=== PATIENT | male | born 1990 | race Caucasian/White ===

== ENCOUNTER 2016-12-12 13:27 | Emergency (ER) | payer BC ==
--- NOTE | 2016-12-12 16:04 | RAD ---
INDICATION: Fall. Left elbow injury COMPARISON: None TECHNIQUE: AP, lateral, and oblique views were obtained. FINDINGS: There is no acute fracture. The elbow articulates normally. There is no joint effusion. There is a laceration about the proximal ulna and distal forearm along the dorsal aspect. IMPRESSION: NO ACUTE FRACTURE. LACERATION.
[2016-12-12] MEDS ORDERED: Ibuprofen TAB* 800 MG PO ONE (18:36)
--- NOTE | 2016-12-12 18:41 | ED ---
Upper Extremity Pain - HPI Summary HPI Summary: Pt here w/ Lt elbow injury s/p fall in [place] earlier today - cut elbow on a dirty rock. Has a laceration over Lt elbow and pain w/ movement but he can move it. Denies numbness, tingling, weakness. Imms are UTD. No other injuries to report. - History of Current Complaint Chief Complaint: EDLacSutureRecheck Stated Complaint: LT ELBOW INJURY Time Seen by Provider: 12/12/16 17:36 Hx Obtained From: Patient - Allergies/Home Medications Allergies/Adverse Reactions: Allergies Allergy/AdvReac Type Severity Reaction Status Date / Time No Known Allergies Allergy Verified 12/12/16 15:40 PMH/Surg Hx/FS Hx/Imm Hx Previously Healthy: Yes Endocrine/Hematology History: Denies: Hx Anticoagulant Therapy, Hx Blood Disorders, Autoimmune Disease Infectious Disease History: No Infectious Disease History: Denies: Hx of Known/Suspected MRSA, Traveled Outside the [place] in Last 30 Days - Social History Occupation: Student Lives: With Family Alcohol Use: None Hx Substance Use: No Substance Use Type: Reports: None Hx Tobacco Use: Yes Smoking Status (MU): Current Every Day Smoker Review of Systems Positive: no symptoms reported Musculoskeletal: Other - see HPI Skin: Other - see HPI Neurological: Negative Psychological: Normal All Other Systems Reviewed And Are Negative: Yes Physical Exam Triage Information Reviewed: Yes Vital Signs On Initial Exam: Initial Vitals Temp Pulse Resp BP Pulse Ox 97.9 F 95 18 123/66 97 12/12/16 13:35 12/12/16 13:35 12/12/16 13:35 12/12/16 13:35 12/12/16 13:35 Vital Signs Reviewed: Yes Appearance: Positive: Well-Appearing, Well-Nourished, Pain Distress - mild at rest Skin: Positive: Warm - punture/lac wound over Lt olecranon p - bubbling d/c - no active bleeding Head/Face: Positive: Normal Head/Face Inspection Eyes: Positive: EOMI ENT: Positive: Hearing grossly normal Respiratory/Lung Sounds: Positive: Breath Sounds Present Cardiovascular: Positive: Normal, Pulses are Symmetrical in both Upper and Lower Extremities Musculoskeletal: Positive: Normal, Strength/ROM Intact Neurological: Positive: Normal, Sensory/Motor Intact, Alert, Oriented to Person Place, Time, CN Intact II-III Psychiatric: Positive: Normal Procedures - Procedure Summary Procedure Summary: Irregular and dirty Lt elbow puncture/lac after [place] - 5mm in size. Cleaned with iodine and injected with marcaine 0.5% then flushed with 500cc sterile water and iodine solution. Packed w/ sterile gauze and bandage applied. Pt tolerated well. Diagnostics - Vital Signs Vital Signs Temp Pulse Resp BP Pulse Ox 12/12/16 15:34 97.9 F 95 18 123/66 97 12/12/16 13:35 97.9 F 95 18 123/66 97 - Laboratory Lab Statement: Any lab studies that have been ordered have been reviewed, and results considered in the medical decision making process. Course/Dx - Diagnoses Provider Diagnoses: Laceration of elbow, left Discharge - Discharge Plan Condition: Stable Disposition: HOME Prescriptions: Clindamycin CAP* [Cleocin 150 MG CAP*] 300 mg PO Q6H #60 cap Patient Education Materials: Laceration (ED), Laceration Without Closure (ED) Referrals: Non Staff,Doctor [Primary Care Provider] - Additional Instructions: Keep dressing in place until tomorrow when packing may be changed by a medical professional. Rest, ice, elevate in the meantime You may take ibuprofen alternating with acetaminophen for pain Complete antibiotics as directed Follow-up with medical provider tomorrow for packing change. You may return here or go to urgent care. *If you develop fever, chills, nausea, vomiting, swelling, streaking, inability to move elbow, return to ED
[2016-12-12] MEDS ORDERED: Clindamycin CAP* 150 MG PO ONE (18:42)
[2016-12-12 19:43] VITALS: BP 142/62
== END 2016-12-12 19:42 | disposition home or self-care (01) ==
LOC: ED 13:27
DX: S51.012A Laceration without foreign body of left elbow, initial encounter (principal); W19.XXXA Unspecified fall, initial encounter; Y93.9 Activity, unspecified; Y92.9 Unspecified place or not applicable; Y99.9 Unspecified external cause status; F17.210 Nicotine dependence, cigarettes, uncomplicated
CPT/HCPCS: 99282; A9270-GY

== ENCOUNTER 2016-12-13 11:20 | Emergency (ER) | payer BC ==
[2016-12-13] MEDS ORDERED: Vancomycin(*) 1,000 MG in NS 0.9% 250 ML* 250 ML IVPB ONE (12:48)
[2016-12-13 14:04] VITALS: BP 128/74
--- NOTE | 2016-12-13 14:06 | ED ---
Skin Complaint - HPI Summary HPI Summary: Patient presents for wound check. He was seen last night for a puncture wound to the left elbow. The area was cleaned and packed. He was to return today for a wound check. Today, the area seems to be draining yellow serous and sanguineous fluid from the packing and puncture with surrounding cellulitic erythema which patient feels may have slightly became worse overnight. He was placed on Clindamycin. No culture was obtained yesterday, so agree to have one today. Denies fever, numbness, tingling. The area has warmth with no streaking from the wound. He is able to have full ROM of the elbow but with moderate amount of pain. He is otherwise healthy and takes no medications. He agrees to follow up with his PCP or his father his is an MD tomorrow to continue a wound check. - History of Current Complaint Chief Complaint: EDLacSutureRecheck Time Seen by Provider: 12/13/16 11:35 Stated Complaint: LT ARM DRESSING CHANGE Hx Obtained From: Patient Onset/Duration: Started Days Ago Skin Exposure Onset/Duration: Days Ago Timing: Constant Onset Severity: Mild Current Severity: Mild Pain Intensity: 4 Pain Scale Used: 0-10 Numeric Skin Location: Discrete - left elbow Character: Swelling, Pain, Redness, Raised Aggravating Symptom(s): Nothing Alleviating Symptom(s): Nothing Associated Signs & Symptoms: Joint Swelling Related History: Trauma, Foreign Body - Allergy/Home Medications Allergies/Adverse Reactions: Allergies Allergy/AdvReac Type Severity Reaction Status Date / Time No Known Allergies Allergy Verified 12/12/16 15:40 PMH/Surg Hx/FS Hx/Imm Hx Previously Healthy: Yes Endocrine/Hematology History: Denies: Hx Anticoagulant Therapy, Hx Blood Disorders - Immunization History Hx Pertussis Vaccination: No Immunizations Up to Date: Unable to Obtain/Confirm Infectious Disease History: No Infectious Disease History: Denies: Hx of Known/Suspected MRSA, Traveled Outside the [place] in Last 30 Days - Social History Occupation: Employed Full-time Lives: With Family Alcohol Use: None Hx Substance Use: No Substance Use Type: Reports: None Hx Tobacco Use: Yes Smoking Status (MU): Current Every Day Smoker Review of Systems Constitutional: Negative Eyes: Negative Cardiovascular: Negative Respiratory: Negative Positive: no symptoms reported, see HPI Positive: Arthralgia, Myalgia Positive: Other - erythema surrounding a puncture wound of the left elbow Neurological: Negative Psychological: Normal All Other Systems Reviewed And Are Negative: Yes Physical Exam Triage Information Reviewed: Yes Vital Signs On Initial Exam: Initial Vitals Temp Pulse Resp BP Pulse Ox 98.8 F 96 16 136/65 98 12/13/16 11:22 12/13/16 11:22 12/13/16 11:22 12/13/16 11:22 12/13/16 11:22 Vital Signs Reviewed: Yes Appearance: Positive: Well-Appearing, Well-Nourished Skin: Positive: Warm, Skin Color Reflects Adequate Perfusion, Other - erythema surrounding a puncture wound of the left elbow Head/Face: Positive: Normal Head/Face Inspection Eyes: Positive: EOMI, ADRIENNE, Conjunctiva Clear Neck: Positive: Supple, No Lymphadenopathy Respiratory/Lung Sounds: Positive: Clear to Auscultation, Breath Sounds Present Cardiovascular: Positive: Normal, RRR, Pulses are Symmetrical in both Upper and Lower Extremities Musculoskeletal: Positive: Limited @ - flexion and extension of the left elbow d /t pain Neurological: Positive: Sensory/Motor Intact, Alert, Oriented to Person Place, Time, Speech Normal Psychiatric: Positive: Normal Procedures - Incision and Drainage Anesthesia: Lidocaine Packing: Other - iodoform 1/4 dressing - 2inches Diagnostics - Vital Signs Vital Signs Temp Pulse Resp BP Pulse Ox 12/13/16 11:26 98.8 F 96 16 136/65 100 12/13/16 11:22 98.8 F 96 16 136/65 98 - Laboratory Lab Statement: Any lab studies that have been ordered have been reviewed, and results considered in the medical decision making process. Course/Dx - Course Course Of Treatment: erythema surrounding a puncture wound of the left elbow. packing was pulled and culture obtained and sent. Will await results but continue clindamycin. d/t possible worsening infection and swelling of the left elbow, will give 1g vancomycin IV in ED. Patient OK with plan. 1ml lidocaine placed around the wound. the areas was copiously drained with a filter tube with 20cc's NS. 2inch of 1/4 iodoform placed on wound. gauze wrapped with john wrap surrounding area. patient tolerated well. - Differential Diagnoses - Skin Complaint Differential Diagnoses: Abscess, Cellulitis, MRSA - Diagnoses Provider Diagnoses: Abscess of bursa, left elbow Discharge - Discharge Plan Condition: Stable Disposition: HOME Patient Education Materials: Abscess (ED) Referrals: Non Staff,Doctor [Primary Care Provider] - Additional Instructions: Follow up with PCP tomorrow for a wound check If you develop any worsening redness around the area, more warmth, red streaking moving away from the area, you develop a fever or have any other worsening symptoms, return to the ED immediately. Do not discontinue the antibiotics until they are gone, even if you begin to feel improved.
== END 2016-12-13 15:05 | disposition home or self-care (01) ==
LOC: ED 11:20
DX: M71.022 Abscess of bursa, left elbow (principal); F17.210 Nicotine dependence, cigarettes, uncomplicated
CPT/HCPCS: 87070; 87107; 87205; 99282; J3370